=== PATIENT | female | born 1985 ===

== ENCOUNTER 2022-04-09 23:29 | Observation (INO) | payer MEDICAID ==
[~2022-04-09] VITALS: Ht 165.1 cm; Wt 74.1 kg
[2022-04-09 23:43] LABS: BASO # 0.1 K/mm3 (0.0-0.2); BASO % 0.4 % (0.0-2.0); EOS # 0.3 K/mm3 (0.0-0.7); EOS % 2.5 % (0.0-4.0); GRAN % 54.4 % (42.2-75.2); LYMPH # 4.7 K/mm3 (1.2-3.4); LYMPH % 36.1 % (20.0-51.0); MEAN CELL VOLUME 77 fl (80.0-100.0); MEAN CORPUSCULAR HGB CONC 33 g/dl (33.0-37.0); MONO # 0.8 K/mm3 (0.1-0.6); MONO % 6.3 % (1.7-9.3); PLATELET COUNT 333 K/mm3 (130-400); RED BLOOD COUNT 3.77 M/mm3 (4.10-5.30); REDCELL DISTRIBUTION WIDTH-CV 15.7 % (11.5-14.5)
[2022-04-09 23:45] LABS: HEMATOCRIT 28.9 % (37.0-47.0); HEMOGLOBIN 9.4 g/dl (12.5-16.0); MEAN CORPUSCULAR HEMOGLOBIN 25 pg (27-31)
[2022-04-09 23:56] LABS: COLLECTION METHOD CLEAN CATCH
[2022-04-10] VITALS (8 sets, daily range): BP systolic 101–115; BP diastolic 48–78; PULSE 65–89; TEMP 98–98.7
[2022-04-10 00:01] LABS: ALBUMIN 3.4 gm/dL (3.5-5.0); BILIRUBIN,TOTAL 0.2 mg/dL (0.2-1.2); CALCIUM 8.9 mg/dL (8.4-10.2); CREATININE, serum 0.72 mg/dL (0.57-1.11); POTASSIUM 3.8 mmol/L (3.5-4.5); TOTAL PROTEIN 6.5 gm/dL (6.2-8.1)
[2022-04-10 00:07] LABS: MUCOUS Present (NOT PRESENT); URINE APPEARANCE Clear (CLEAR/HAZY); URINE BACTERIA None Seen /hpf (NONE SEEN); URINE COLOR Yellow (YELLOW)
[2022-04-10 00:08] LABS: URINE BLOOD TRACE-INTACT (NEGATIVE); URINE GLUCOSE Negative (NEGATIVE); URINE KETONE TRACE (NEGATIVE); URINE NITRATE Negative (NEGATIVE); URINE PROTEIN(semi-quant) Negative (NEGATIVE); URINE UROBILINOGEN 0.2 E.U/dL (0.2-1.0)
[2022-04-10] MEDS ORDERED: ADDERALL XR20 MG PO (00:20)
--- NOTE | 2022-04-10 01:39 | NUR ---
PT TO ROOM. VITALS TAKEN PT-. IS AWAKE AND REPORTS NO PAIN AT THIS TIME. SUPPORT PERSON AND THEIR 1 YEAR OLD DAUGHTER IN ROOM
[2022-04-10] MEDS ORDERED: ROXICODONE 55 MG/TAB PO (01:44)
--- NOTE | 2022-04-10 02:24 | NUR ---
SUPPORT PERSON LEAVES WITH CHILD WILL RETURN AT ABOUT 9 AM
--- NOTE | 2022-04-10 07:30 | NUR ---
RN to patient room for assessment. Patient sleeping soundly, easily arouses to name. VSS, Denies pain. Reports minimal to no vaginal bleeding. Assessment complete. marine services technician to unit and in to see patient. See notes.
--- NOTE | 2022-04-10 09:45 | NUR ---
0945-Discharge orders reviwed. Instructed on need to schedule follow up within 2 weeks, verbalized understanding. Patient denies questions. Awaiting ride from significant other. 1035-Significant other, Catherine to patient room. 1045-Ambulatory off unit with family and Gigi unit tech.
--- NOTE | 2022-04-10 10:02 | NUR ---
trail maintenance worker met with patient regarding concerns for human trafficking. After further discussions with the patient, nursing has minimal concerns for trafficking. Patient was open and friendly when talking with worker. Patient states that she has been with her boyfriend (paul Gleason) and father of her child sincen 2018. They recently resided in [place], where patient's father lives. Patient states her boyfriend "closed on a house in [place], and that she and her child moved down in March. 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 Worker provided patient with written information about [facility] as patient is actively looking for a primary care provider for her and her child. Patient states she is very close with her sister and that they stayed in [place] several years ago. Worker collaborated on the above information with nursing staff. Patient has voiced feelings of being safe, to nursing.
--- NOTE | 2022-04-10 10:10 | NUR ---
Initial visit; Audelia thanked Hiv Nurse for looking in on her and for offering God's blessings. Patient states her family prayed for her last night and was receptive to having Hiv Nurse keep her in her prayers.
== END 2022-04-10 10:45 | disposition home or self-care (01) ==
LOC: COL.ER 23:29 → OB 04-10 00:44
PROVIDERS: Nurse Practitioner Primary Care; ADMIT Obstetrics & Gynecology
DX: O03.4 Incomplete spontaneous abortion without complication (principal); O99.330 Smoking (tobacco) complicating pregnancy, unspecified trimester; Z3A.13 13 weeks gestation of pregnancy
CPT/HCPCS: J1885; J2210; J2270; J2405; J2704; J3010; J7030; J7120

== ENCOUNTER 2024-05-20 12:34 | Outpatient (CLI) | payer MEDICAID ==
[~2024-05-20] VITALS: Ht 165.1 cm; Wt 75.5 kg
[~2024-05-20 12:34] MED LIST: ADDERALL XR20 MG PO; ROXICODONE 55 MG/TAB PO
--- NOTE | 2024-05-20 12:51 | NUR ---
1250 PT ORENTED TO ROOM AND PLACED ON MONITORS. CHANGED INTO GOWN. PT IS HERE FOR RIGHTSIDED UPPER FLANK PAIN AND RASH. 26.4 WEEKS. PT DENIES LOF, VB AND CTX. FETUS IS VERY ACTIVE. FHT CATAGORY 1. VS WNL. SVE CL/TH/HIGH. PT SAID THAT SHE LIVES IN [place] BUT USES AN OB IN . HER FIRST BABY WAS BORN AT 32 WEEKS DUE TO PRE-ECLAMPSIA AND IUGR. PT HAS A PETECHIAL LOOKING RASH THAT WAS UBDER HER RIGHT BRA LINE AND UP HER BACK. PT HAS NO PAIN OR ITCHING WITH THE RASH. DR SCHUSTER ORDERED A UA, CBC, CMP, AND TSH.
[2024-05-20] MEDS ORDERED: LR 1,000 ML IV PRN (13:15)
[2024-05-20 13:30] VITALS: BP 121/75; PULSE 90; TEMP 98.1
[2024-05-20 13:33] LABS: BASO % 0.3 % (0.0-2.0); EOS # 0.1 K/mm3 (0.0-0.7); EOS % 1.2 % (0.0-4.0); GRAN # 7.8 K/mm3 (1.4-6.5); HEMOGLOBIN 12.3 g/dl (12.5-16.0); LYMPH # 2.9 K/mm3 (1.2-3.4); LYMPH % 25.5 % (20.0-51.0); MEAN CELL VOLUME 92 fl (80.0-100.0); MEAN CORPUSCULAR HEMOGLOBIN 31 pg (27-31); MEAN CORPUSCULAR HGB CONC 34 g/dl (33.0-37.0); MEAN PLATELET VOLUME 8.5 fl (7.4-10.4); MONO # 0.5 K/mm3 (0.1-0.6); MONO % 4.4 % (1.7-9.3); PLATELET COUNT 244 K/mm3 (130-400); RED BLOOD COUNT 3.95 M/mm3 (4.10-5.30)
[2024-05-20 13:42] LABS: COLLECTION METHOD CLEAN CATCH
[2024-05-20 13:46] LABS: ALBUMIN 3.1 g/dL (3.5-5.0); BILIRUBIN,TOTAL 0.2 mg/dL (0.2-1.2); CALCIUM 9.3 mg/dL (8.4-10.2); CREATININE, serum 0.6 mg/dL (0.57-1.11); POTASSIUM 3.8 mEq/L (3.5-4.5); TOTAL PROTEIN 6.5 g/dl (6.2-8.1)
[2024-05-20 13:48] LABS: HEMATOCRIT 36.2 % (37.0-47.0)
[2024-05-20 13:49] LABS: PH 6.5 (5.0-8.5); URINE APPEARANCE CLEAR (CLEAR/HAZY); URINE BLOOD NEGATIVE (NEGATIVE); URINE COLOR YELLOW (YELLOW); URINE GLUCOSE NEGATIVE (NEGATIVE); URINE KETONE NEGATIVE (NEGATIVE); URINE NITRATE NEGATIVE (NEGATIVE); URINE PROTEIN(semi-quant) NEGATIVE (NEGATIVE); URINE UROBILINOGEN 0.2 E.U/dL (0.2-1.0)
[2024-05-20] MEDS ORDERED: ADDERALL5 MG PO (13:50)
[2024-05-20] MEDS ORDERED: PRENATAL TABLET PO (13:52)
[2024-05-20] MEDS ORDERED: VYVANSE50 MG PO (13:52)
[2024-05-20] MEDS ORDERED: VITAMIN B COMPL1 SGL PO (13:53)
[2024-05-20] MEDS ORDERED: D3-5050000 IU PO (13:53)
[2024-05-20] MEDS ORDERED: NATURAL MAGNES200 MG PO (13:54)
--- NOTE | 2024-05-20 15:43 | NUR ---
PT LABS BACK. CALLED DR SCHUSTER TO UPDATE ON LAB STATUS. DR SCHUSTER STATED THAT LONG LABS AND FHT LOOKED GOOD PT COULD GO AND FOLLOW UP WITH HER DOCTOR OR THE ER FOR ANY FURTHER CONCERNS. PT WAS EDUCATED TO DRINK WATER AND FOLLOW UP WITH HER PCP OR SHE COULD GO TO THE ER. PT SAID SHE WOULD SEE HER PCP. PT AND SPOUSE WALKED OFF THE UNIT AT 1543.
== END 2024-05-20 15:43 | disposition home or self-care (01) ==
LOC: LDRO 12:34
PROVIDERS: Obstetrics & Gynecology
DX: O26.892 Other specified pregnancy related conditions, second trimester (principal); R10.9 Unspecified abdominal pain; Z3A.26 26 weeks gestation of pregnancy